=== PATIENT | female | born 1950 | race Caucasian/White ===

== ENCOUNTER → 2020-02-22 | Day surgery (SDC) | payer MEDICARE, OTHER ==
[2020-02-18 13:34] LABS: BASOPHILS % 0.6 % (0.0-1.0); EOSINOPHILS # (AUTO) 0.1 (0.0-0.4); EOSINOPHILS % 2.6 % (0.0-6.0); HEMATOCRIT 34.2 % (34.2-44.1); HEMOGLOBIN 11.4 g/dL (12.0-16.0); LYMPHOCYTES # (AUTO) 2.2 (1.0-3.2); LYMPHOCYTES % 43.6 % (18.0-39.1); MEAN CORPUSCULAR HEMOGLOBIN 30.4 pg (28-32); MEAN CORPUSCULAR HGB CONC 33.3 g/dL (31-35); MEAN CORPUSCULAR VOLUME 91.2 fL (81-99); MONOCYTES # (AUTO) 0.4 (0.2-0.8); MONOCYTES % 7.5 % (4.4-11.3); NEUTROPHILS # (AUTO) 2.3 (2.1-6.9); NEUTROPHILS % 45.3 % (38.7-80.0); PLATELET COUNT 232 x10e3/uL (140-360); RED BLOOD COUNT 3.75 x10e6/uL (3.6-5.1); RED CELL DISTRIBUTION WIDTH 12.7 % (11.7-14.4)
[2020-02-18 13:55] LABS: ANION GAP 15.1 mmol/L (8-16); CALCIUM 9.8 mg/dL (8.4-10.2); POTASSIUM 4.1 mmol/L (3.5-5.1)
--- NOTE | 2020-02-18 14:31 | Diagnostic Imaging Report ---
X-ray chest 2 views History: Preop Comparison: None. Findings: Central airways unremarkable. Heart size borderline normal. Mediastinal contours unremarkable for an ectatic aorta. There is no pleural effusion. No pneumothorax. Hyperinflated lungs. A 17 mm x 12 mm nodular opacity in the left lower lung zone. It is not well-visualized on the lateral view. Skeletal structures are unremarkable. Upper abdomen unremarkable. Impression: Cardiomegaly with tortuous aorta. No acute cardiopulmonary disease. Possible emphysema. Correlation with clinical findings is recommended. Left lung nodular opacity can be evaluated further with a chest CT on a nonurgent basis. Signed by: Juan Almodovar MD on 02/18/2020 2:27 PM
[~2020-02-22] MED LIST: ASPIRIN81 MG PO; BUPIVACAINE HCL 0.5% INJ 30 ML VIAL INJ ONE; CEFAZOLIN SOD 1 GM/NS 50ML 50 ML IV ONE; DEXAMETHASONE SOD PHOS INJ 4 MG/ML VIAL ONE; FENTANYL CITRATE/PF 100MCG/2 ML INJ ONE; FIBER TABS625 MG PO; GEMFIBROZIL600 MG PO; LIDOCAINE HCL 2% LOCAL INJ 5 ML SDV VIAL INJ ONE; LORATADINE10 MG PO; LOSARTAN-HCTZ1 EAC1 PO; METOPROLOL SUCC50 MG PO; MIDAZOLAM HCL 2 MG/2 ML VIAL ONE; MULTIVITAMINS1 EAC7 PO; ONDANSETRON HCL INJ 2MG/ML 2ML 2 MG/ML VIAL ONE; PROPOFOL IV EMULSION 10 MG/ML 20 ML VIAL ONE; SEVOFLURANE INHAL SOLN 250 ML PEN BTL ONE; VITAMIN C500 M3 PO; VITAMIN D310 MCG PO
[2020-02-22 08:55] VITALS: BP 130/72
--- NOTE | 2020-02-22 09:17 | Operative Report ---
DATE OF PROCEDURE: 02/22/2020 SURGEON: Paula Leon DPM PREOPERATIVE DIAGNOSES: 1. Left hallux valgus. 2. Left 2nd digit hammertoe. POSTOPERATIVE DIAGNOSES: 1. Left hallux valgus. 2. Left 2nd digit hammertoe. PLANNED PROCEDURE: 1. Left Lapidus bunionectomy with first metatarsal cuneiform joint fusion. 2. Left 2nd digit hammertoe arthroplasty. COOK ROAST: Sunshine Larson DPM ([place]). ANESTHESIA: General with a postoperative block consisting of 15 mL of 0.5% Marcaine plain mixed with 1 mL of dexamethasone phosphate. HEMOSTASIS: Pneumatic thigh tourniquet set at 350 mmHg for a total time of approximately 1 hour. MATERIALS: 1. One OmegaGenesis 0 mm bow plate, one OmegaGenesis 4.0 x 34 cannulated Darco screw. 2. Four screws combination nonlocking and locking measuring between 18 and 20 mm at 2.7, 2-0 Vicryl, 3-0 Vicryl, 4-0 Prolene. ESTIMATED BLOOD LOSS: Less than 10 mL. PATHOLOGY: None. PROCEDURE NOTE: The patient was seen in the preoperative waiting room, where the correct procedure and site was identified. The patient was brought to the operating room and placed on the operating table in the supine position. General anesthesia was initiated at this time. A well-padded pneumatic tourniquet was placed about the patient's left thigh. The left foot, ankle, leg was then scrubbed, prepped, and draped in the usual aseptic manner. The left foot, ankle, leg was exsanguinated with an Esmarch bandage and the pneumatic thigh tourniquet was inflated to 350 mmHg for total time of approximately 1 hour. Attention was directed to the dorsal medial aspect of the patient's left foot, where an 8 cm long curvilinear incision was made over the metatarsal cuneiform joint extending into the metatarsophalangeal joint. The incision was carried through subcutaneous tissue them from deep or underlying structures. All vital and neurovascular structures were identified, retracted medially laterally. All bleeders were cauterized or ligated as deemed necessary. At this time, the attention was directed to the 1st metatarsophalangeal joint, where through the same incision a full lateral release was performed consisting of a deep transverse metatarsal ligament, lateral collateral ligament of the fibular sesamoid ligament. The hallux was then put through range of motion and found to be functioning in a more proper anatomic alignment. An inverted L-capsulotomy was performed at the metatarsophalangeal joint to allow for good visualization of the metatarsal head as well as the sesamoid complex. Utilizing a McGlamry elevator, the head of the metatarsal was freed of all capsular ligamentous attachments. Next, utilizing a sagittal saw, the medial eminence and dorsal eminence was resected and passed off the back table. The dissection was then carried down to the 1st metatarsal cuneiform joint where a linear capsulotomy was performed to allow for good visualization of the joint. Utilizing a sagittal saw, a wedge resection was taken from the lateral aspect of the cuneiform with the apex medial and the wedge lateral. Next, utilizing one osteotome cartilage was denuded as well as a curved curette. Next, subchondral drilling was performed utilizing a 2-0 drill bit. Next, utilizing techniques of manipulation and distraction, the IM angle was reduced and temporarily fixated with a guidewire confirmed to be in good anatomic location of the intraoperative fluoroscopy with reduction of IM angle and sesamoid position. The 4-0 cannulated screw by 34 mm placed through the guidewire and noted to be in good anatomic alignment. Next, a 0 mm bone neutralization plate was placed on the medial aspect of the metatarsal cuneiform joint. The four screws measuring between 18 and 20 mm locking and nonlocking 2.7 mm. Again confirmed via intraoperative fluoroscopy, the wound was then copiously irrigated with sterile saline. Capsule and deep tissue were reapproximated with 3-0 Vicryl, subcutaneous tissue with 3-0 Vicryl and the skin was closed using a running interlocking stitch with 4-0 Prolene. The patient tolerated the procedure and anesthesia well. The patient was transferred to the postoperative recovery room with vital signs stable and vascular status intact. Deep tissue was reapproximated with 3-0 Vicryl, subcutaneous tissue with 3-0 Vicryl and the skin was closed using a running interlocking stitch of 4-0 Prolene. Attention was directed to the 2nd digit hammer toe, where a 1 cm linear incision was made directly over the proximal interphalangeal joint. Incision was carried through subcutaneous tissue them from deep or underlying structures. All vital and neurovascular structures were identified, retracted medially and laterally and all bleeders were cauterized or ligated as deemed necessary. Next, utilizing a sagittal saw, the head of the proximal phalanx as well as the base of the middle phalanx was resected and passed off to the back table. Next, through a stab incision, a CAT tenotomy and capsulotomy was performed at the metatarsophalangeal joint. Next, in a retrograde fashion, 0.045 K-wire was drilled through the middle and distal phalanx back to the proximal phalanx and into the 2nd metatarsal and the fixation is stable. This was confirmed via intraoperative fluoroscopy. The wound was then copiously irrigated with sterile saline. Deep tissues reapproximated with 3-0 Vicryl, subcutaneous tissue with 3-0 Vicryl and the skin was closed utilizing simple interrupted sutures of 4-0 Prolene. The incision sites were then dressed with Adaptic, 4x4s, Kerlix, 4 inch Webril, 4 x 30 posterior splint, a 4-inch Brennan wrap, and a 6-inch Brennan wrap. The patient tolerated the procedure and anesthesia well. The patient was transferred to the postoperative recovery unit with vital signs stable and vascular status intact. The patient was monitored there for a short period time before being sent home with the following written and oral instructions. 1. Keep the dressing clean, dry, and intact. 2. The patient is to remain nonweightbearing in a posterior splint to avoid excessive ambulation until being seen in the office. 3. The patient is given office number, should contact us if any problems arise. DON Morales/MODL /[id number]
== END | disposition home or self-care (01) ==
LOC: OR 05:00
PROVIDERS: ATTEND Podiatrist Foot & Ankle Surgery
DX: M20.12 Hallux valgus (acquired), left foot (principal); M20.42 Other hammer toe(s) (acquired), left foot; I10 Essential (primary) hypertension; E78.00 Pure hypercholesterolemia, unspecified; G47.33 Obstructive sleep apnea (adult) (pediatric); R00.1 Bradycardia, unspecified; Z01.810 Encounter for preprocedural cardiovascular examination; Z01.812 Encounter for preprocedural laboratory examination; Z01.818 Encounter for other preprocedural examination; Z11.59 Encounter for screening for other viral diseases; Z79.82 Long term (current) use of aspirin
CPT/HCPCS: 28285; 28297; 36415; 71046; 80048; 85025; 93005; C1713 ×5; J0690; J1100; J2001; J2250; J2405; J2704; J3010; U0002

== ENCOUNTER → 2020-03-24 | Outpatient (CLI) | payer MEDICARE, OTHER ==
[~2020-03-24] MED LIST changes: -BUPIVACAINE HCL 0.5% INJ 30 ML VIAL INJ ONE; -CEFAZOLIN SOD 1 GM/NS 50ML 50 ML IV ONE; -DEXAMETHASONE SOD PHOS INJ 4 MG/ML VIAL ONE; -FENTANYL CITRATE/PF 100MCG/2 ML INJ ONE; -LIDOCAINE HCL 2% LOCAL INJ 5 ML SDV VIAL INJ ONE; -MIDAZOLAM HCL 2 MG/2 ML VIAL ONE; -ONDANSETRON HCL INJ 2MG/ML 2ML 2 MG/ML VIAL ONE; -PROPOFOL IV EMULSION 10 MG/ML 20 ML VIAL ONE; -SEVOFLURANE INHAL SOLN 250 ML PEN BTL ONE
--- NOTE | 2020-03-24 15:00 | Diagnostic Imaging Report ---
EXAM: CT Chest WITHOUT intravenous contrast 03/24/2020 2:20 PM INDICATION: Pulmonary nodule COMPARISON: Chest radiograph 02/18/2020 TECHNIQUE: Chest was scanned utilizing a multidetector helical scanner from the lung apex through the level of the adrenal glands without administration of IV contrast. Coronal and sagittal reformations were obtained. Routine protocol was performed. IV CONTRAST: None RADIATION DOSE: Total DLP: 488 mGy*cm. Dose modulation, iterative reconstruction, and/or weight based adjustment of the mA/kV was utilized to reduce the radiation dose to as low as reasonably achievable. COMPLICATIONS: None FINDINGS: LINES/ TUBES: None. LUNGS AND AIRWAYS: The central airways are patent. No focal consolidation or pulmonary edema. No findings in the lungs to correspond with the nodular opacity seen in the left lower lung on the prior chest radiograph of 02/18/2020. The opacity likely corresponds with prominent costochondral calcifications. 4 mm right lower lobe pulmonary nodule. PLEURA: The pleural spaces are clear. HEART AND MEDIASTINUM: The thyroid gland is normal. No mediastinal, hilar or axillary lymphadenopathy. The heart is normal in size.. There is no pericardial effusion. Mild scattered aortic calcifications. UPPER ABDOMEN: Cholelithiasis. No additional acute findings in the upper abdomen. BONES: No acute osseous injury. SOFT TISSUES: Unremarkable. IMPRESSION: No findings in the left lung to correspond with the nodular opacity seen in the left lower lung on the prior chest radiograph of 02/18/2020. 4 mm right lower lobe pulmonary nodule. If the patient is high risk, follow-up chest CT is optional in 1 year. If the patient is low risk, no further follow-up imaging is necessary. Signed by: Demetrio Layton MD on 03/24/2020 2:57 PM
== END ==
LOC: CT 13:49
PROVIDERS: ATTEND Internal Medicine
DX: R93.89 Abnormal findings on diagnostic imaging of other specified body structures (principal); R91.8 Other nonspecific abnormal finding of lung field
CPT/HCPCS: 71250

== ENCOUNTER → 2020-09-12 | Day surgery (SDC) | payer MEDICARE, OTHER ==
[2020-09-09 11:24] LABS: BASOPHILS % 0.6 % (0.0-1.0); EOSINOPHILS # (AUTO) 0.2 (0.0-0.4); EOSINOPHILS % 3.4 % (0.0-6.0); HEMATOCRIT 34.2 % (34.2-44.1); HEMOGLOBIN 11.4 g/dL (12.0-16.0); LYMPHOCYTES # (AUTO) 2.4 (1.0-3.2); LYMPHOCYTES % 48.1 % (18.0-39.1); MEAN CORPUSCULAR HGB CONC 33.3 g/dL (31-35); MONOCYTES # (AUTO) 0.4 (0.2-0.8); MONOCYTES % 8.2 % (4.4-11.3); NEUTROPHILS # (AUTO) 1.9 (2.1-6.9); NEUTROPHILS % 39.1 % (38.7-80.0); PLATELET COUNT 223 x10e3/uL (140-360); RED CELL DISTRIBUTION WIDTH 12.3 % (11.7-14.4)
[~2020-09-12] MED LIST changes: +ACETAMINOPHEN/CODEINE 300MG - 30MG TAB ONE; +BUPIVACAINE HCL 0.5% INJ 30 ML VIAL INJ ONE; +CEFAZOLIN SOD 1 GM/NS 50ML 50 ML IV ONE; +DEXAMETHASONE SOD PHOS INJ 4 MG/ML VIAL ONE; +EPHEDRINE SULFATE INJ 50 MG/ML VIAL ONE; +FENTANYL CITRATE/PF 100MCG/2 ML INJ ONE; +KETOROLAC TROMETHAMINE 30 MG/ML VIAL ONE; +LIDOCAINE HCL 2% LOCAL INJ 5 ML SDV VIAL INJ ONE; +LOSARTAN POTAS100 MG PO; +MIDAZOLAM HCL 2 MG/2 ML VIAL ONE; +ONDANSETRON HCL INJ 2MG/ML 2ML 2 MG/ML VIAL ONE; +PROPOFOL IV EMULSION 10 MG/ML 20 ML VIAL ONE; +SEVOFLURANE INHAL SOLN 250 ML PEN BTL ONE
[2020-09-12 08:20] VITALS: BP 150/62
== END | disposition home or self-care (01) ==
LOC: OR 05:35
PROVIDERS: ATTEND Podiatrist Foot & Ankle Surgery
DX: T84.84XA Pain due to internal orthopedic prosthetic devices, implants and grafts, initial encounter (principal); G47.33 Obstructive sleep apnea (adult) (pediatric); I10 Essential (primary) hypertension; E78.5 Hyperlipidemia, unspecified; R06.09 Other forms of dyspnea; Y83.8 Other surgical procedures as the cause of abnormal reaction of the patient, or of later complication, without mention of misadventure at the time of the procedure; Z01.810 Encounter for preprocedural cardiovascular examination; Z01.812 Encounter for preprocedural laboratory examination; Z20.822 Contact with and (suspected) exposure to COVID-19; Z79.82 Long term (current) use of aspirin
CPT/HCPCS: 20680; 36415; 85025; 93005; J0690; J1100; J1885; J2001; J2250; J2405; J2704; J3010; U0002

== ENCOUNTER → 2024-06-28 | Day surgery (SDC) | payer MEDICARE, OTHER ==
[2024-06-26 11:08] LABS: BASOPHILS % 0.7 % (0.0-1.0); EOSINOPHILS # (AUTO) 0.1 (0.0-0.4); HEMATOCRIT 36.9 % (34.2-44.1); HEMOGLOBIN 11.6 g/dL (12.0-16.0); LYMPHOCYTES # (AUTO) 2.4 (1.0-3.2); LYMPHOCYTES % 42.9 % (18.0-39.1); MEAN CORPUSCULAR HEMOGLOBIN 30.8 pg (28-32); MEAN CORPUSCULAR HGB CONC 31.4 g/dL (31-35); MEAN CORPUSCULAR VOLUME 97.9 fL (81-99); MONOCYTES # (AUTO) 0.5 (0.2-0.8); MONOCYTES % 9.4 % (4.4-11.3); NEUTROPHILS # (AUTO) 2.5 (2.1-6.9); NEUTROPHILS % 44.6 % (38.7-80.0); PLATELET COUNT 190 x10e3/uL (140-360); RED BLOOD COUNT 3.77 x10e6/uL (3.6-5.1); RED CELL DISTRIBUTION WIDTH 12.5 % (11.7-14.4); WHITE BLOOD COUNT 5.52 x10e3/uL (4.8-10.8)
[~2024-06-28] MED LIST changes: +ACETAMINOPHEN-1 EAC4 PO; -ACETAMINOPHEN/CODEINE 300MG - 30MG TAB ONE; +AMLODIPINE BESYL5 MG PO; -BUPIVACAINE HCL 0.5% INJ 30 ML VIAL INJ ONE; -CEFAZOLIN SOD 1 GM/NS 50ML 50 ML IV ONE; -DEXAMETHASONE SOD PHOS INJ 4 MG/ML VIAL ONE; -EPHEDRINE SULFATE INJ 50 MG/ML VIAL ONE; +FAMOTIDINE20 MG PO; -KETOROLAC TROMETHAMINE 30 MG/ML VIAL ONE; -MIDAZOLAM HCL 2 MG/2 ML VIAL ONE; +OMEPRAZOLE40 MG PO; +ROSUVASTATIN CAL5 MG PO
[2024-06-28] MEDS: CLINDAMYCIN 600MG / 50ML 50 ML IV ONE (07:02)
[2024-06-28] MEDS: LACTATED RINGER'S 1,000 ML ONE (07:02)
[2024-06-28 09:42] VITALS: BP 139/66; PULSE 62; RESP 18; O2SAT 95
== END | disposition home or self-care (01) ==
LOC: OR 06:01
PROVIDERS: ATTEND Plastic Surgery
DX: G56.01 Carpal tunnel syndrome, right upper limb (principal); M65.841 Other synovitis and tenosynovitis, right hand; M65.331 Trigger finger, right middle finger; I10 Essential (primary) hypertension; Z01.810 Encounter for preprocedural cardiovascular examination; Z01.812 Encounter for preprocedural laboratory examination; Z01.818 Encounter for other preprocedural examination; Z79.82 Long term (current) use of aspirin; Z79.899 Other long term (current) drug therapy
CPT/HCPCS: 25115; 26055; 36415; 71046; 85025; 93005; J2003; J2405; J2704; J3010; J7121

== ENCOUNTER 2024-08-01 13:30 | Outpatient (RCR) | payer MEDICARE, OTHER ==
[~2024-08-01 13:30] MED LIST changes: -FENTANYL CITRATE/PF 100MCG/2 ML INJ ONE; -LIDOCAINE HCL 2% LOCAL INJ 5 ML SDV VIAL INJ ONE; -ONDANSETRON HCL INJ 2MG/ML 2ML 2 MG/ML VIAL ONE; -PROPOFOL IV EMULSION 10 MG/ML 20 ML VIAL ONE; -SEVOFLURANE INHAL SOLN 250 ML PEN BTL ONE
== END 2024-08-03 ==
LOC: OT 13:30
PROVIDERS: ATTEND Plastic Surgery
DX: M65.331 Trigger finger, right middle finger (principal)

== ENCOUNTER 2024-08-29 09:00 | Outpatient (RCR) | payer MEDICARE, OTHER | END 2024-08-31 | LOC: OT 09:00 | PROVIDERS: ATTEND Plastic Surgery | DX: M65.331 Trigger finger, right middle finger (principal); R53.1 Weakness ==

== ENCOUNTER 2024-09-17 10:00 | Outpatient (RCR) | payer MEDICARE, OTHER | END 2024-10-01 | LOC: OT 10:00 | PROVIDERS: ATTEND Plastic Surgery | DX: M65.331 Trigger finger, right middle finger (principal); R53.1 Weakness ==